=== PATIENT | male | born 1965 | race American Indian/Alaskan Native ===

== ENCOUNTER 2018-02-27 08:26 | Outpatient (CLI) | payer OTHER ==
--- NOTE | 2018-02-27 09:19 | XRay Report ---
RIGHT SHOULDER, 3 VIEWS: HISTORY: right shoulder pain. Normal bone mineralization. No acute osseous injury or joint pathology is detected. The soft tissues are unremarkable. IMPRESSION: Right shoulder within normal limits.
== END 2018-02-27 08:27 | disposition home or self-care (01) ==
LOC: XRAY 08:26
PROVIDERS: ATTEND Internal Medicine
DX: M25.511 Pain in right shoulder (principal); M51.36 Other intervertebral disc degeneration, lumbar region; M51.26 Other intervertebral disc displacement, lumbar region